=== PATIENT | female | born 1945 | race Hispanic/Latino ===

== ENCOUNTER → 2023-04-16 | Outpatient (CLI) | payer OTHER, MEDICARE ==
[~2023-04-16] MED LIST: AMLO5TAB4 PO; ASPI-1443 PO; ATOR40TA71 PO; CLOP-31 PO; LEVO25TA9 PO; MONT-47 PO; OXYB5TAB20 PO; VALS160T29 PO
== END | disposition home or self-care (01) ==
LOC: RAH 14:08
PROVIDERS: ATTEND Internal Medicine Hematology & Oncology
DX: C50.812 Malignant neoplasm of overlapping sites of left female breast (principal); E04.2 Nontoxic multinodular goiter
CPT/HCPCS: 76536

== ENCOUNTER → 2023-05-01 | Outpatient (CLI) | payer OTHER, MEDICARE ==
[2023-05-01 10:37] LABS: INR 0.94 (0.85-1.15); PROTHROMBIN TIME 10.9 SEC (9.6-11.6)
[2023-05-01 10:39] LABS: PARTIAL THROMBOPLASTIN TIME 28.5 SEC (26.3-35.5)
== END ==
LOC: RAH 09:10
PROVIDERS: ATTEND Internal Medicine Hematology & Oncology
DX: E04.1 Nontoxic single thyroid nodule (principal); E78.5 Hyperlipidemia, unspecified; E11.9 Type 2 diabetes mellitus without complications; I63.9 Cerebral infarction, unspecified; Z88.0 Allergy status to penicillin; Z87.891 Personal history of nicotine dependence; Z79.899 Other long term (current) drug therapy; Z79.82 Long term (current) use of aspirin; Z90.49 Acquired absence of other specified parts of digestive tract; Z98.890 Other specified postprocedural states
CPT/HCPCS: 10005; 10006; 36415; 76942; 85610; 85730; 88112; 88305

== ENCOUNTER → 2025-05-04 | Outpatient (CLI) | payer MEDICARE ==
[~2025-05-04] MED LIST changes: +GADOTERATE MEGLUMINE 10 MMOL/20 ML VIAL IV ONE
--- NOTE | 2025-05-05 00:52 | HMCIMG ---
MRI OF THE BRAIN WITH CONTRAST Clinical Indication: Cerebral infarction, unspecified. Comparison: No prior imaging available for comparison. Technique: Multiplanar, multisequence MRI of the brain was performed before and after intravenous contrast administration. Contrast Dose: Not available. Findings: Brain Parenchyma: There is age-appropriate neuroparenchymal volume loss with widening of the cortical sulci and basal cisterns, and ex vacuo prominence of the ventricular system. Old infarcts are seen involving the anteromedial thalami bilaterally, extending inferiorly into the midbrain. There are diffuse, moderate T2 and FLAIR hyperintensities in the periventricular and deep white matter regions, without diffusion restriction or susceptibility artifacts. These findings are suggestive of chronic small vessel ischemic changes. No acute infarct, hemorrhage, or mass lesion is identified. Post-Contrast Evaluation: There is no abnormal enhancement of the brain parenchyma, meninges, or ependyma following contrast administration. Ventricular System and Extra-Axial Spaces: The ventricles are mildly prominent in keeping with age-related cerebral atrophy. No midline shift, extra-axial fluid collection, or mass effect is demonstrated. 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 * Chronic small vessel ischemic changes involving the periventricular and deep white matter. * Age-appropriate cerebral atrophy. * No acute infarct, hemorrhage, or abnormal post-contrast enhancement. /[place]
== END | disposition home or self-care (01) ==
LOC: RAH 14:48
PROVIDERS: ATTEND Internal Medicine Hematology & Oncology
DX: C50.812 Malignant neoplasm of overlapping sites of left female breast (principal); I67.82 Cerebral ischemia; G31.9 Degenerative disease of nervous system, unspecified; I63.9 Cerebral infarction, unspecified; I69.151 Hemiplegia and hemiparesis following nontraumatic intracerebral hemorrhage affecting right dominant side; R52 Pain, unspecified; T78.40XD Allergy, unspecified, subsequent encounter; Z23 Encounter for immunization; L91.8 Other hypertrophic disorders of the skin; M67.431 Ganglion, right wrist; F32.A Depression, unspecified; H66.92 Otitis media, unspecified, left ear; N39.498 Other specified urinary incontinence; G90.09 Other idiopathic peripheral autonomic neuropathy; E78.5 Hyperlipidemia, unspecified; X58.XXXD Exposure to other specified factors, subsequent encounter
CPT/HCPCS: 70553; A9575